=== PATIENT | female | born 1955 | race Caucasian/White ===

== ENCOUNTER → 2019-10-30 | Outpatient (CLI) | payer OTHER ==
[~2019-10-30] MED LIST: ALL DAY ALLERGY10 M3 PO; AMARYL2 M1 PO; ASA81BEC PO; ASPIR 8181 M1 PO; CALCIUM 600 +1 EAC1 PO; CLARITIN10 MG PO; COQ-10100 MG PO; EFFEXOR XR37.5 MG PO; GLUCOPHAGE850 MG PO; IBUPROFEN 800800 MG PO; INTRAROSA6.5 MG VAG; INVOKANA300 MG PO; JANUVIA100 MG PO; LISINOPRIL5 MG PO; LYRICA 75 MG CA75 MG PO; MELOXICAM15 MG PO; MULTIVITAMINS PO; NOLVADEX20 MG PO; NORCO 5-325 TA1 EACH PO; NORFLEX100 MG PO; ONGLYZA5 MG PO; PREDNISONE 20 M20 M1 PO; VICOPROFEN 2001 EACH PO; ZYRTEC10 M5 PO
== END ==
LOC: M.PC 02:59
DX: M79.672 Pain in left foot (principal); G62.9 Polyneuropathy, unspecified

== ENCOUNTER → 2019-11-27 | Outpatient (CLI) | payer OTHER | END | disposition home or self-care (01) | LOC: M.PC 07:53 | DX: G57.72 Causalgia of left lower limb (principal); I10 Essential (primary) hypertension; E78.00 Pure hypercholesterolemia, unspecified; Z98.890 Other specified postprocedural states; Z79.899 Other long term (current) drug therapy; Z85.3 Personal history of malignant neoplasm of breast; Z87.442 Personal history of urinary calculi; Z88.8 Allergy status to other drugs, medicaments and biological substances; Z90.710 Acquired absence of both cervix and uterus ==

== ENCOUNTER → 2019-12-06 | Outpatient (CLI) | payer OTHER | LOC: M.PC 04:34 | DX: M79.672 Pain in left foot (principal); G89.4 Chronic pain syndrome; Z88.8 Allergy status to other drugs, medicaments and biological substances; Z79.899 Other long term (current) drug therapy ==